=== PATIENT | male | born 2005 | race Caucasian/White ===

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

== ENCOUNTER 2024-05-01 14:34 | Emergency (ER) | payer OTHER, SELFPAY ==
[2024-05-01 14:47] VITALS: BP 147/78; PULSE 113; RESP 16; TEMP 37.1; O2SAT 99
--- NOTE | 2024-05-01 15:16 | ED.ABDPAIN ---
HPI - Abdominal Pain General Chief Complaint: Abdominal Pain Stated Complaint: stomach pain,left side pain Time Seen by Provider: 05/01/24 15:16 Source: patient, RN notes reviewed and old records reviewed Mode of arrival: ambulatory Limitations: no limitations History of Present Illness HPI narrative: Patient presents with complaints of intermittent generalized abdominal pain for the past 2 years. He denies any fever, chills, sweats. Denies any injury or trauma. Denies nausea or vomiting. Denies any constipation or diarrhea. He is requesting a work note today Related Data Home Medications Medication Instructions Recorded Confirmed No Home Medications 05/01/24 05/01/24 Allergies Allergy/AdvReac Type Severity Reaction Status Date / Time No Known Allergies Allergy Verified 05/29/22 18:47 Review of Systems Review of Systems: All systems reviewed & are unremarkable except as noted in HPI and below Constitutional: Constitutional: Reports no additional constitutional complaints ENT: Reports system reviewed and no additional complaints, except as documented Cardiovascular: Cardiovascular: Reports no additional cardiovascular complaints Respiratory: Respiratory: Reports no additional respiratory complaints Gastrointestinal: Gastrointestinal: Reports as per HPI and Reports no additional gastrointestinal complaints [facility] Surgical History Surgical History Status post tracheostomy x 1 year after & then closed Comments At the time of my signature, I reviewed and agree with the nursing past medical, surgical, social, and family history. There is no relevant family history pertinent to the patient complaint. Exam Const: General: cooperative, no acute distress, alert and awake Orientation/consciousness: oriented to person, oriented to place and oriented to time HENMT: Head: normal to inspection Mouth: Yes moist mucous membranes Resp: Effort & Inspection: normal respiratory effort and able to speak in complete sentences Auscultation: clear to auscultation bilaterally, no crackles, no rales, no rhonchi and no wheezes Cardio: Palpation: normal PMI Rate: regular rate Rhythm: regular rhythm Heart sounds: S1 normal heart sound present and S2 normal heart sound present GI: GI Palp: No abdominal tenderness, Yes Soft to palpation, No Firmness to palpation present (GI), No Tenderness to palpation present (GI), No Guarding due to palpation present (GI) and No Rigid due to palpation Neuro: General: oriented to person, oriented to place and oriented to time Cranial nerves: Yes CN's II-XII intact bilaterally Psych: Appearance: grossly normal Thought process: Normal thought process present Insight: Good insight present (Psych) Judgement: Good judgement present (Psych) Course Course Level of Care: Express Care Visit Vital Signs Vital signs: Vital Signs Temperature 98.8 F 05/01/24 14:47 Pulse Rate 113 H 05/01/24 14:47 Respiratory Rate 16 05/01/24 14:47 Blood Pressure 147/78 H 05/01/24 14:47 Pulse Oximetry 99 05/01/24 14:47 Oxygen Delivery Room Air 05/01/24 14:47 Temperature 98.8 F 05/01/24 14:47 Pulse Rate 113 H 05/01/24 14:47 Respiratory Rate 16 05/01/24 14:47 Blood Pressure 147/78 H 05/01/24 14:47 Pulse Oximetry 99 05/01/24 14:47 Oxygen Delivery Room Air 05/01/24 14:47 Reviewed MDM - Abdominal Pain MDM Narrative Medical decision making narrative: Patient with intermittent generalized abdominal pain for 2 years. Symptoms no different today. Patient eating and drinking as normal. He is advised to discuss this and his elevated blood pressure with his primary care provider. Emergency department for any new or worse symptoms. Work note provided per request. Discharge instructions reviewed with patient, as well as provided in writing per nursing staff. The instructions also include specific and stric
== END 2024-05-01 15:31 | disposition home or self-care (01) ==
PROVIDERS: Emergency Provider Nurse Practitioner Family
DX: R03.0 Elevated blood-pressure reading, without diagnosis of hypertension (principal); R10.84 Generalized abdominal pain
CPT/HCPCS: 99211; G0463

== ENCOUNTER 2024-06-03 00:51 | Emergency (ER) | payer OTHER, SELFPAY ==
[2024-06-03 01:00] VITALS: BP 112/72; PULSE 112; RESP 18; TEMP 37; O2SAT 100
--- NOTE | 2024-06-03 01:09 | ED_ITS ---
HPI - General Adult General Chief complaint: Unspecified Stated complaint: swollen tonsils Time Seen by Provider: 06/03/24 01:00 Source: patient Mode of arrival: ambulatory Limitations: no limitations History of Present Illness HPI narrative: This is a 18-year-old male that presents to the emergency department for sore throat. Ongoing over the last week. Reports subjective fever tonight. Related Data Allergies Allergy/AdvReac Type Severity Reaction Status Date / Time No Known Allergies Allergy Verified 06/03/24 00:51 Review of Systems Review of Systems: CONSTITUTIONAL: Reports subjective fever ENT: Reports sore throat. Denies rhinorrhea, congestion, or otalgia. RESPIRATORY: Denies cough All systems reviewed & are unremarkable except as noted in HPI and below PMFSH Surgical History Surgical History Status post tracheostomy x 1 year after & then closed Social History Social History (Updated 06/03/24 @ 01:10 by Caroline Singh PA-C) Smoking status: Never smoker Exam Narrative: GENERAL: Well-appearing, well-nourished, and in no acute distress. HEAD: Normocephalic, atraumatic. EYES: EOMI. ENT: Nares clear, no rhinorrhea or epistaxis. Mucous membranes moist. Oropharynx with symmetric tonsillar hypertrophy, no exudate or other lesions. Uvula is midline. No trismus. Bilateral cerumen impaction NECK: Supple. No adenopathy or masses. CHEST: Clear to auscultation. No respiratory distress. No wheezes rales or rhonchi HEART: Regular rate and rhythm. No murmur heard. Normal peripheral pulses. ABDOMEN: Soft, nontender, nondistended, normal active bowel sounds. EXTREMITIES: Normal range of motion. No edema. SKIN: Warm, dry, no rash. NEURO: No focal deficits. Alert and oriented x3. PSYCH: Normal mood and affect Course Course Emergency Course: Patient and family agree with plan of care Vital Signs Vital signs: Vital Signs Temperature 98.6 F 06/03/24 01:00 Pulse Rate 112 H 06/03/24 01:00 Respiratory Rate 18 06/03/24 01:00 Blood Pressure 112/72 06/03/24 01:00 Pulse Oximetry 100 06/03/24 01:00 Temperature 98.6 F 06/03/24 01:00 Pulse Rate 112 H 06/03/24 01:00 Respiratory Rate 18 06/03/24 01:00 Blood Pressure 112/72 06/03/24 01:00 Pulse Oximetry 100 06/03/24 01:00 Medical Decision Making MDM Narrative Medical decision making narrative: Patient presents to the emergency department for sore throat. Ongoing over the last week. Patient is afebrile and nontoxic appearing. Symmetric tonsillar hypertrophy noted. Uvula is midline. No trismus. Patient will be started on oral antibiotics and was instructed to follow up with primary provider. He was given warnings to return to the ER Differential Diagnosis Differential Diagnosis: strep, pharyngitis, tonsillitis Vital Signs Vital Signs: Vital Signs Temperature 98.6 F 06/03/24 01:00 Pulse Rate 112 H 06/03/24 01:00 Respiratory Rate 18 06/03/24 01:00 Blood Pressure 112/72 06/03/24 01:00 Pulse Oximetry 100 06/03/24 01:00 Temperature 98.6 F 06/03/24 01:00 Pulse Rate 112 H 06/03/24 01:00 Respiratory Rate 18 06/03/24 01:00 Blood Pressure 112/72 06/03/24 01:00 Pulse Oximetry 100 06/03/24 01:00 Lab Data Lab results reviewed: Yes I reviewed the patient's lab results. Labs: Lab Results 06/03/24 Range/Units 01:16 Group A Strep (PCR) Not detected (Negative) Critical Care Time Critical Care Time Critical Care Time: No Discharge Plan Discharge Clinical Impression: Acute tonsillitis Qualifiers: Pharyngitis/tonsillitis etiology: unspecified etiology Qualified Code(s): J03.90 - Acute tonsillitis, unspecified Patient Disposition: Home, Self-Care Condition: Stable Instructions: Antibiotic Form, Tonsillitis (ED) Additional Instructions: Return to the emergency department for worsening symptoms, or any other concerns Remain well-hydrated, get plenty of rest. Take Tylenol or Motrin [id number] for pain as needed. Lozenges or Chloraseptic spray for sore throat. Take oral antibiotics as prescribed Follow up with primary care doctor Prescriptions: New amoxicillin-pot clavulanate 875-125 mg tablet 1 tablet PO Q12H 10 Days Qty: 20 0RF Follow-up/Referrals: PHYSICIAN,TRIM MASTER OPERATOR [Primary Care Provider] - Stephan Yip MD [Physician] -
[2024-06-03] MEDS: IBUPROFEN 600 MG TABLET PO (01:17)
[2024-06-03] MEDS: AMOXICILLIN/CLAVULANATE K 875-125 MG TAB 1 TABLET PO (01:43)
[2024-06-03 01:47] LABS: Strep Group A RT-PCR NOT DETECTED (Negative)
[2024-06-03 01:54] VITALS: RESP 18; O2SAT 99
[2024-06-03 01:59] VITALS: BP 110/66; PULSE 94; RESP 18; O2SAT 100
== END 2024-06-03 02:00 | disposition home or self-care (01) ==
PROVIDERS: Emergency Provider Physician Assistant
DX: J03.90 Acute tonsillitis, unspecified (principal)
CPT/HCPCS: 87651; 99283; A9270